=== PATIENT | female | born 1975 | race Caucasian/White ===

== ENCOUNTER 2020-03-13 15:45 | Emergency (ER) | payer OTHER ==
[~2020-03-13] VITALS: Ht 172.7 cm; Wt 150.0 kg
[~2020-03-13 15:45] MED LIST: ALDACTONE50 MG PO; BETASERON0.3 M2; DITROPAN 5MG TAB5 MG PO; GLUCOPHAGE500 MG/TAB PO; IBU800 M1 PO; MIDRIN PO; MULTI VITAMINS1 TAB PO; PEPCID 20MG TAB20 MG PO; PRILOSEC40 MG PO
[2020-03-13 15:56] VITALS: TEMP 99.7
[2020-03-13] MEDS ORDERED: LEVOXYL0.075 MG PO (16:18)
[2020-03-13] MEDS ORDERED: COUMADIN 5MG5 MG/TAB PO (16:19)
[2020-03-13] MEDS ORDERED: NEURONTIN300 MG/CAP PO (16:20)
[2020-03-13] MEDS ORDERED: GLUCOTROL 5M5 MG/TAB PO (16:21)
[2020-03-13 16:35] LABS: BASO % 0.5 % (0.0-2.0); EOS # 0.4 (0.0-0.7); EOS % 5.6 % (0-4.0); GRAN # 3.7 (1.4-6.5); HEMOGLOBIN 11.3 g/dl (12.5-16.0); INR 1.8 (0.8-3.0); LYMPH # 1.7 (1.2-3.4); LYMPH % 26.3 % (20.0-51.0); MEAN CELL VOLUME 90 fl (80.0-100.0); MEAN CORPUSCULAR HEMOGLOBIN 30 pg (27.0-31.0); MEAN CORPUSCULAR HGB CONC 33 g/dl (33.0-37.0); MEAN PLATELET VOLUME 11.4 fl (7.4-10.4); MONO # 0.7 (0.1-0.6); MONO % 10.1 % (1.7-9.3); PLATELET COUNT 126 K/mm3 (130-400); PROTHROMBIN TIME 20.7 SECONDS (9.7-12.8); RED BLOOD COUNT 3.81 M/mm3 (4.10-5.30); REDCELL DISTRIBUTION WIDTH-CV 13.1 % (11.5-14.5)
[2020-03-13 16:40] LABS: ALBUMIN 3.6 gm/dL (3.5-5.0); BILIRUBIN,TOTAL 0.5 mg/dL (0.0-1.0); CREATININE, serum 0.57 (0.52-1.25); POTASSIUM 4.4 mmol/L (3.4-5.0); TOTAL PROTEIN 7.4 gm/dL (6.4-8.2)
[2020-03-13 16:43] LABS: HEMATOCRIT 34.1 % (37.0-47.0)
[2020-03-13 16:54] LABS: C-REACTIVE PROTEIN 19.9 mg/dL (0.0-0.9)
[2020-03-13] MEDS ORDERED: CEPHALEXIN500 M1 PO (17:09)
[2020-03-13] MEDS ORDERED: DOXYCYCLINE 10100 MG PO (17:09)
[2020-03-13 17:23] VITALS: BP 134/78; PULSE 76
== END 2020-03-13 17:36 | disposition home or self-care (01) ==
LOC: COL.ER 15:45
PROVIDERS: Emergency Medicine
DX: L03.115 Cellulitis of right lower limb (principal); E11.9 Type 2 diabetes mellitus without complications; G35 Multiple sclerosis; Z79.01 Long term (current) use of anticoagulants; Z79.84 Long term (current) use of oral hypoglycemic drugs; Z86.718 Personal history of other venous thrombosis and embolism

== ENCOUNTER → 2020-05-31 | Outpatient (CLI) | payer OTHER ==
[~2020-05-31] MED LIST changes: +CEPHALEXIN500 M1 PO; +COUMADIN 5MG5 MG/TAB PO; +DOXYCYCLINE 10100 MG PO; +GLUCOTROL 5M5 MG/TAB PO; +LEVOXYL0.075 MG PO; +NEURONTIN300 MG/CAP PO
== END ==
LOC: ZLAB.KSTAT 16:06
DX: U07.1 COVID-19 (principal)

== ENCOUNTER → 2021-03-21 | Outpatient (CLI) | payer OTHER | LOC: COL.PUL 02-28 08:00 | DX: R06.02 Shortness of breath (principal); E03.9 Hypothyroidism, unspecified; E11.9 Type 2 diabetes mellitus without complications ==

== ENCOUNTER → 2021-07-18 | Outpatient (CLI) | payer OTHER | LOC: COL.PUL 11:04 | DX: R06.02 Shortness of breath (principal) ==

== ENCOUNTER 2021-12-08 12:58 | Inpatient (IN) | payer OTHER ==
[~2021-12-08] VITALS: Ht 172.7 cm; Wt 146.5 kg
[2021-12-08 14:49] LABS: BASO % 0.5 % (0.0-2.0); EOS # 0.3 K/mm3 (0.0-0.7); EOS % 4.5 % (0.0-4.0); GRAN # 2.6 K/mm3 (1.4-6.5); GRAN % 42.1 % (42.2-75.2); HEMATOCRIT 37.1 % (37.0-47.0); HEMOGLOBIN 12.8 g/dl (12.5-16.0); LYMPH # 2.7 K/mm3 (1.2-3.4); LYMPH % 42.8 % (20.0-51.0); MEAN CELL VOLUME 86 fl (80.0-100.0); MEAN CORPUSCULAR HEMOGLOBIN 30 pg (27-31); MEAN CORPUSCULAR HGB CONC 35 g/dl (33.0-37.0); MEAN PLATELET VOLUME 11.2 fl (7.4-10.4); MONO # 0.6 K/mm3 (0.1-0.6); MONO % 9.6 % (1.7-9.3); PLATELET COUNT 122 K/mm3 (130-400); RED BLOOD COUNT 4.32 M/mm3 (4.10-5.30)
[2021-12-08 15:03] LABS: INR 1.8 (0.8-3.0); PROTHROMBIN TIME 21.1 SECONDS (9.7-12.8)
[2021-12-08 15:12] LABS: ALANINE AMINOTRANSFERASE 65 U/L (0-55); ALBUMIN 3.5 gm/dL (3.5-5.0); ALKALINE PHOSPHATASE 93 U/L (40-150); ANION GAP 12 mmol/L (7-16); AST,SGOT 36 U/L (5-34); BILIRUBIN,TOTAL 0.4 mg/dL (0.2-1.2); BLOOD UREA NITROGEN 12 mg/dL (7-19); C-REACTIVE PROTEIN 4.73 mg/dL (0.00-0.50); CARBON DIOXIDE 26 mmol/L (22-29); CHLORIDE 98 mmol/L (98-107); CREATININE, serum 0.81 mg/dL (0.57-1.11); GLUCOSE 211 mg/dL (70-99); POTASSIUM 4.5 mmol/L (3.5-4.5); SODIUM 136 mmol/L (136-145); TOTAL PROTEIN 7.2 gm/dL (6.2-8.1)
[2021-12-08 15:20] LABS: TROPONIN-I < 0.010 ng/mL (0.00-0.033)
[2021-12-08] MEDS ORDERED: PROVENTIL0.09 MG/A1 IH (16:43)
[2021-12-08] MEDS ORDERED: TEMOVATE OINT30 GM TOP (16:44)
[2021-12-08] MEDS ORDERED: SINGULAIR 110 MG/TAB PO (16:44)
[2021-12-08] MEDS ORDERED: VIRTUSSIN AC 1118 ML PO (16:45)
[2021-12-08] MEDS ORDERED: BIAXIN 500MG T500 MG PO (16:45)
[2021-12-08] MEDS ORDERED: PRILOSEC 20MG20 MG PO (16:46)
--- NOTE | 2021-12-08 20:20 | NUR ---
pt admitted to room 329 from ED per cart for SOB, pna. IV present in LAC intact/secure. currently on 2L O2 per NC, reports non-prod. cough, CARRIZALES and low back pain. oriented to room, unit and plan of care. reviewed orders, pt very hungry, sandwich box provided. up ad erin in room.
[2021-12-08 20:58] VITALS: BP 147/84; PULSE 90; TEMP 98.2
[2021-12-08 23:15] VITALS: BP 111/68; PULSE 77; TEMP 97.8
[2021-12-09 03:30] VITALS: BP 133/77; PULSE 93; TEMP 97.7
--- NOTE | 2021-12-09 06:59 | NUR ---
remains on 2L O2 to maintain sats >90%, up in room ad erin without difficulty. tylenol given for CARRIZALES without relief, contacted [facility], oxycodone ordered and given. BGM after eating last noc 244, notified [facility] for this as well, SSI 6 units given. receiving RT tx for wheezing, cough meds for cough.
--- NOTE | 2021-12-09 07:28 | NUR ---
Pt doing okay this morning. She is having complaints of back pain. Reports it is normally not this bad, but combination of coughing and the bed. She stated that she wants to lay flat, but then the coughing gets worse. Pt did recently get some pain medications, reports it is helping some. Pt has ordered breakfast, no other needs verbalized.
[2021-12-09 08:00] VITALS: BP 112/63; PULSE 83; TEMP 97.9
--- NOTE | 2021-12-09 11:04 | NUR ---
SW met with patient to complete intake. Patient staes that she lives in [place] with her life partner Reece Rueda [phone]. Patient states she does not utilize any DME and is independent with ADL's. PCP is Dr. Cuadra, and pharmacy is [facility]. Patient states that she does not have anyone appointed as her DPOA/HC and did not wish to appoint anyone at this time. SW will continue to follow. DC plan: home
[2021-12-09 11:52] VITALS: BP 119/57; PULSE 95; TEMP 98
[2021-12-09 15:33] LABS: INR 1.6 (0.8-3.0); PROTHROMBIN TIME 18.3 SECONDS (9.7-12.8)
[2021-12-09 15:35] VITALS: BP 126/67; PULSE 90; TEMP 98.1
[2021-12-09 20:00] VITALS: BP 139/67; PULSE 102; TEMP 98.2
[2021-12-10 00:14] VITALS: BP 124/56; PULSE 97; TEMP 97.9
[2021-12-10 04:00] VITALS: BP 125/72; PULSE 90; TEMP 97.8
--- NOTE | 2021-12-10 05:06 | NUR ---
Pt had an uneventful night. Pt complained of pain intermittently through the evening, PRN pain meds were given. Pt was able to take oral medications without difficulty. No other complaints at this time and all other needs met. Call light within reach.
[2021-12-10 06:08] LABS: BASO % 0.2 % (0.0-2.0); EOS # 0.1 K/mm3 (0.0-0.7); EOS % 0.9 % (0.0-4.0); GRAN # 3.9 K/mm3 (1.4-6.5); GRAN % 60.4 % (42.2-75.2); HEMATOCRIT 37.7 % (37.0-47.0); HEMOGLOBIN 12.5 g/dl (12.5-16.0); LYMPH # 1.9 K/mm3 (1.2-3.4); LYMPH % 29.8 % (20.0-51.0); MEAN CELL VOLUME 89 fl (80.0-100.0); MEAN CORPUSCULAR HEMOGLOBIN 30 pg (27-31); MEAN CORPUSCULAR HGB CONC 33 g/dl (33.0-37.0); MEAN PLATELET VOLUME 11.4 fl (7.4-10.4); MONO # 0.5 K/mm3 (0.1-0.6); MONO % 8.1 % (1.7-9.3); PLATELET COUNT 142 K/mm3 (130-400); RED BLOOD COUNT 4.23 M/mm3 (4.10-5.30)
[2021-12-10 06:23] LABS: CREATININE, serum 0.83 mg/dL (0.57-1.11); INR 1.5 (0.8-3.0); POTASSIUM 4.4 mmol/L (3.5-4.5); PROTHROMBIN TIME 16.9 SECONDS (9.7-12.8)
[2021-12-10 07:37] VITALS: BP 127/69; PULSE 87; TEMP 97.8
[2021-12-10] MEDS ORDERED: TYLENOL 500MG500 MG PO (09:44)
[2021-12-10] MEDS ORDERED: OMNICEF 300MG300 MG PO (10:07)
[2021-12-10] MEDS ORDERED: DOXYCYCLINE HY100 MG PO (10:08)
[2021-12-10] MEDS ORDERED: PREDNISONE20 MG PO (10:09)
--- NOTE | 2021-12-10 12:13 | NUR ---
Reviewed discharge instructions with pt to include prescriptions and follow up appointment. Pt verbalized understanding. INT removed from left AC. Informed her to notify nursing when her ride is here
--- NOTE | 2021-12-10 12:49 | NUR ---
Pt escorted out at this time
== END 2021-12-10 12:50 | disposition home or self-care (01) | DRG 193 ==
LOC: COL.ER 12:58 → SURG 19:14 → COL.ER 19:14 → SURG 20:45
PROVIDERS: Nurse Practitioner; Student in an Organized Health Care Education/Training Program; ADMIT Internal Medicine
DX: J18.9 Pneumonia, unspecified organism (principal); J96.01 Acute respiratory failure with hypoxia; Z68.43 Body mass index [BMI] 50.0-59.9, adult; G35 Multiple sclerosis; E11.9 Type 2 diabetes mellitus without complications; J43.9 Emphysema, unspecified; K21.9 Gastro-esophageal reflux disease without esophagitis; E03.9 Hypothyroidism, unspecified; R32 Unspecified urinary incontinence; E66.01 Morbid (severe) obesity due to excess calories; Z20.822 Contact with and (suspected) exposure to COVID-19; Z86.718 Personal history of other venous thrombosis and embolism; Z79.01 Long term (current) use of anticoagulants; Z79.84 Long term (current) use of oral hypoglycemic drugs; Z23 Encounter for immunization
CPT/HCPCS: 99223-AI; 99233-AI; 99239; J0696; J1815; J7512; Q9967